=== PATIENT | male | born 1995 | race African-American/Black ===

== ENCOUNTER 2018-07-20 20:47 | Inpatient (IN) | payer SELFPAY ==
[2018-07-20] MEDS ORDERED: NS 0.9% 1000 ML** 3,000 ML IV ONE (21:01)
--- NOTE | 2018-07-20 21:16 | ED ---
HPI Diabetic - HPI Summary HPI Summary: This patient is a 22 year old M presenting to [facility] with a chief complaint of suspected DKA since he has not taken insulin in the past week. Patient is type 1 diabetic. He reports feeling sluggish and nauseous with frequent urination today. He has been unable to get insulin due to issues with his insurance. He states he has been trying to control his BG with his diet as much as possible this past week. 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 - History Of Current Complaint Chief Complaint: EDDiabeticProb Time Seen by Provider: 07/20/18 21:06 Hx Obtained From: Patient Onset/Duration: Gradual Onset, Lasting Days Timing: Constant Severity Initially: Mild Severity Currently: Severe Character: Alert Aggravating: Medication Change Alleviating: Nothing Associated Signs & Symptoms: Weight Loss - increase urination Related History: DM I - Allergies/Home Medications Allergies/Adverse Reactions: Allergies Allergy/AdvReac Type Severity Reaction Status Date / Time No Known Allergies Allergy Verified 07/20/18 21:41 PMH/Surg Hx/FS Hx/Imm Hx Endocrine/Hematology History: Reports: Hx Diabetes - type 1 Respiratory History: Denies: Hx Asthma Infectious Disease History: Yes Infectious Disease History: Denies: Traveled Outside the [place] in Last 30 Days - Family History Known Family History: Negative: Blood Disorder - Social History Occupation: Employed Full-time Hx Substance Use: No Substance Use Type: Reports: None Hx Tobacco Use: No Smoking Status (MU): Never Smoked Tobacco Review of Systems Positive: Fatigue Positive: frequency All Other Systems Reviewed And Are Negative: Yes Physical Exam - Summary Physical Exam Summary: Appearance: Well-appearing, Well-nourished, lying in bed comfortably, generally healthy appearing male Skin: Warm, dry, no obvious rash Eyes: sclera anicteric, no conjunctival pallor ENT: mucous membranes moist, pharynx appears normal Neck: Supple, nontender Respiratory: Clear to auscultation, no signs of respiratory distress, Breathing somewhat kussmal Cardiovascular: Normal S1, S2. No murmurs. Normal distal pulses in tibial and radial bilaterally. Abdomen: Soft, nontender, normal active bowel sounds present Musculoskeletal: Normal, Strength/ROM Intact Neurological: A&Ox3, awake and alert, mentation is normal, speech is fluent and appropriate Psychiatric: affect is normal, does not appear anxious or depressed Triage Information Reviewed: Yes Vital Signs On Initial Exam: Initial Vitals Temp Pulse Resp BP Pulse Ox 98 F 116 30 150/92 100 07/20/18 20:52 07/20/18 20:52 07/20/18 20:52 07/20/18 20:52 07/20/18 20:52 Vital Signs Reviewed: Yes Diagnostics - Vital Signs Vital Signs Temp Pulse Resp BP Pulse Ox 07/20/18 20:52 98 F 116 30 150/92 100 - Laboratory Result Diagrams: 07/21/18 05:05 07/22/18 07:39 Lab Statement: Any lab studies that have been ordered have been reviewed, and results considered in the medical decision making process. Diabetic Course/Dx - Course Course Of Treatment: M presenting to [facility] with a chief complaint of suspected DKA since he has not taken insulin in the past week. Patient is type 1 diabetic. Patients breathing is somewhat kussmal, but he is otherwise alert, oriented and able to answer questions appropiately. Bloodwork obatained revealing BG 343 and carbon dioxide 9. Patient is given 8mg of Zofran and 10 units of insulin. Case discussed with Dr. Holland, hospitalist, who agrees to admission. - Diagnoses Provider Diagnoses: DKA (diabetic ketoacidoses) - Physician Notifications Discussed Care Of Patient With: Helio Holland - hospitalist Time Discussed With Above Provider: 21:54 Instructed by Provider To: Admit As Inpatient - Critical Care Time Critical Care Time: 30-74 min Discharge - Sign-Out/Discharge Documenting (check all that apply): Patient Departure - admit Patient Received Moderate/Deep Sedation with Procedure: No - Discharge Plan Condition: Stable Disposition: ADMITTED TO [facility] - Billing Disposition and Condition Condition: STABLE Disposition: Admitted to [facility] - Attestation Statements Document Initiated by Cadenibe: Yes Documenting Scribe: Anita Salazar Provider For Whom Tre is Documenting (Include Credential): Paco Negreteibwilberto Attestation: Anita Rodriguez, cadenibed for Paco Moncada MD on 07/23/18 at 1116. Scribe Documentation Reviewed: Yes Provider Attestation: The documentation as recorded by the Anita hardy accurately reflects the service I personally performed and the decisions made by me, Paco Moncada MD Status of Scribe Document: Viewed
[2018-07-20 21:26] LABS: ABS Basophils 0.2 10^3/ul (0-0.2); ABS Lymphocytes 2.9 10^3/ul (1.0-4.8); ABS Monocytes 0.6 10^3/ul (0-0.8); ABS Neutrophils 7.3 10^3/ul (1.5-7.7); Eosinophil % 0.1 %; Hematocrit 52 % (42-52); Hemoglobin 17.3 g/dL (14.0-18.0); Lymphocyte % 26.2 %; Mean Corpuscular HGB Conc 34 g/dL (31-36); Mean Corpuscular Hemoglobin 31 pg (27-31); Mean Corpuscular Volume 92 fL (80-94); Mean Platelet Volume 7.6 fL (7.4-10.4); Nucleated Red Blood Cells % 0.1; Platelet Count 319 10^3/uL (150-450); Red Blood Count 5.63 10^6 /uL (4.18-5.48); Red Cell Distribution Width 13 % (10.5-15); White Blood Count 10.9 10^3/uL (3.5-10.8)
[2018-07-20 21:43] LABS: ALT 26 U/L (7-52); Albumin 5.3 g/dL (3.2-5.2); Albumin/Globulin Ratio 1.4 (1-3); Alkaline Phosphatase 105 U/L (34-104); BUN/Creatinine Ratio 14.1 (8-20); Blood Urea Nitrogen 20 mg/dL (6-24); C Reactive Protein < 1.00 mg/L (<8.01); Calcium 10.1 mg/dL (8.6-10.3); Chloride 92 mmol/L (101-111); EGFR African American 74.8 (>60); EGFR Non-African American 61.8 (>60); Globulin 3.8 g/dL (2-4); Glucose 343 mg/dL (70-100); Sodium 129 mmol/L (135-145); Total Protein 9.1 g/dL (6.4-8.9)
[2018-07-20 21:47] LABS: CO2 Carbon Dioxide 9 mmol/L (22-32)
[2018-07-20] MEDS ORDERED: Insulin REGULAR(*) 1 UNITS UNIT IV PUSH ONE (21:48)
[2018-07-20] MEDS ORDERED: Ondansetron INJ* 2 MG/ML VIAL IV ONE (21:58)
[2018-07-20 21:59] LABS: AST 17 U/L (13-39); Anion Gap 28 mmol/L (2-11); Potassium 5.3 mmol/L (3.5-5.0)
[2018-07-20] MEDS ORDERED: Insulin IVPB 100 units/100 ml 100 UNITS/100 ML UNIT IVPB SCH ×2 (22:00→23:00)
[2018-07-20] MEDS ORDERED: NS 0.9% 1000 ML** 1,000 ML IV SCH (22:45)
[2018-07-20 23:07] LABS: Phosphorus 4.1 mg/dL (2.5-5.0)
[2018-07-20] MEDS ORDERED: Ondansetron INJ* 2 MG/ML VIAL IV PRN (23:32)
[2018-07-20] MEDS ORDERED: Acetaminophen TAB* 325 MG PO PRN (23:33)
[2018-07-20 23:53] LABS: Urine Appearance Cloudy; Urine Bacteria Absent (Absent); Urine Bilirubin Negative (Negative); Urine Blood 1+ (Negative); Urine Color Yellow; Urine Glucose 3+(>=500 mg/dL) (Negative); Urine Ketones 2+ (Negative); Urine Nitrite Negative (Negative); Urine Protein 1+(30 mg/dL) (Negative); Urine Red Blood Cell Absent (Absent); Urine Specific Gravity 1.018 (1.010-1.030); Urine Urobilinogen Negative (Negative); Urine White Blood Cell Absent (Absent)
[2018-07-20] MEDS: D5NS 0.9% 1000 ML BAG* 1,000 ML IV SCH (23:54)
[2018-07-21 02:02] LABS: BUN/Creatinine Ratio 14.8 (8-20); Blood Urea Nitrogen 16 mg/dL (6-24); Calcium 8.3 mg/dL (8.6-10.3); Chloride 103 mmol/L (101-111); EGFR African American 102.5 (>60); EGFR Non-African American 84.7 (>60); Glucose 225 mg/dL (70-100); Magnesium 1.8 mg/dL (1.9-2.7); Sodium 133 mmol/L (135-145)
[2018-07-21 02:08] LABS: Anion Gap 21 mmol/L (2-11); CO2 Carbon Dioxide 9 mmol/L (22-32)
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
[2018-07-21] MEDS ORDERED: Magnesium Sulfate 2 GM IV* 2 GM/50 ML BAG IVPB ONE (03:21)
[2018-07-21 05:21] LABS: ABS Basophils 0.1 10^3/ul (0-0.2); ABS Lymphocytes 2.5 10^3/ul (1.0-4.8); ABS Monocytes 0.8 10^3/ul (0-0.8); ABS Neutrophils 5.4 10^3/ul (1.5-7.7); Eosinophil % 0.2 %; Hematocrit 44 % (42-52); Hemoglobin 15.2 g/dL (14.0-18.0); Lymphocyte % 28.8 %; Mean Corpuscular HGB Conc 34 g/dL (31-36); Mean Corpuscular Hemoglobin 30 pg (27-31); Mean Corpuscular Volume 88 fL (80-94); Mean Platelet Volume 7.5 fL (7.4-10.4); Nucleated Red Blood Cells % 0.3; Platelet Count 268 10^3/uL (150-450); Red Blood Count 4.99 10^6 /uL (4.18-5.48); Red Cell Distribution Width 13 % (10.5-15); White Blood Count 8.8 10^3/uL (3.5-10.8)
[2018-07-21 05:41] LABS: BUN/Creatinine Ratio 13.6 (8-20); Calcium 8.5 mg/dL (8.6-10.3); EGFR African American 108.3 (>60); EGFR Non-African American 89.5 (>60); Magnesium 2.7 mg/dL (1.9-2.7); Potassium 3.9 mmol/L (3.5-5.0)
[2018-07-21] MEDS: D5NS 0.9% 1000 ML BAG* 1,000 ML IV SCH (06:57)
[2018-07-21] MEDS: Heparin VIAL(*) 5000 UNITS/ML VIAL (FIVE THOUSAND) SUBCUT SCH ×3 (06:57→20:55)
[2018-07-21] MEDS ORDERED: Dextrose 50% Syringe 50 ML* 25 GM/50 ML SYRINGE IV PUSH PRN (08:08)
[2018-07-21] MEDS: Insulin GLARGINE(*) 1 UNITS UNIT SUBCUT SCH (08:39)
[2018-07-21] MEDS: NS 0.9% 1000 ML** 1,000 ML IV SCH ×2 (08:40→22:48)
[2018-07-21 09:21] LABS: BUN/Creatinine Ratio 11.2 (8-20); Calcium 8.5 mg/dL (8.6-10.3); EGFR African American 103.6 (>60); EGFR Non-African American 85.6 (>60); Magnesium 2.3 mg/dL (1.9-2.7); Potassium 3.9 mmol/L (3.5-5.0)
[2018-07-21] MEDS: Insulin IVPB 100 units/100 ml 100 UNITS/100 ML UNIT IVPB SCH ×2 (11:12)
[2018-07-21] MEDS: Insulin LISPRO* 1 UNITS UNIT SUBCUT SCH ×3 (12:39→20:53)
--- NOTE | 2018-07-21 13:38 | PN ---
Subjective Date of Service: 07/21/18 Interval History: Patient seen and examined. Alert, complaint of cramping legs, no n/v, no fevers or chills, no cough or headache. BG has been stabilizing last 4 hours. Objective Active Medications: Acetaminophen (Tylenol Tab*) 650 mg PO Q6H PRN PRN Reason: HEADACHE/PAIN Dextrose (D50w Syringe 50 Ml*) 12.5 gm IV PUSH .FOR FS < 60 - SS PRN PRN Reason: FS < 60 Heparin Sodium (Porcine) (Heparin Vial(*)) 5,000 units SUBCUT Q8HR [facility] Last Admin: 07/21/18 13:19 Dose: Not Given Sodium Chloride (Ns 0.9% 1000 Ml) 1,000 mls @ 75 mls/hr IV PER RATE [facility] Last Admin: 07/21/18 08:40 Dose: 75 mls/hr Insulin Glargine (Lantus(*)) 30 units SUBCUT Q24H [facility] Last Admin: 07/21/18 08:39 Dose: 24 unit Insulin Human Lispro (Humalog*) 0 units SUBCUT ACHS [facility]; Protocol Last Admin: 07/21/18 12:39 Dose: 6 ml Ondansetron HCl (Zofran Inj*) 4 mg IV Q4H PRN PRN Reason: NAUSEA/VOMITING Last Admin: 07/21/18 00:22 Dose: 4 mg Vital Signs - 8 hr 07/21/18 07/21/18 07/21/18 06:00 07:00 08:00 Temperature 98.5 F Pulse Rate 100 80 78 Respiratory 12 13 15 Rate Blood Pressure 124/73 128/72 123/72 (mmHg) O2 Sat by Pulse 99 99 100 Oximetry 07/21/18 07/21/18 07/21/18 09:00 09:01 12:00 Temperature 98.2 F Pulse Rate 80 77 Respiratory 5 8 Rate Blood Pressure 111/60 (mmHg) O2 Sat by Pulse 97 98 Oximetry Oxygen Devices in Use Now: None Appearance: alert, NAD Eyes: No Scleral Icterus, PERRLA Ears/Nose/Mouth/Throat: NL Teeth, Lips, Gums, Mucous Membranes Moist Neck: NL Appearance and Movements; NL JVP, Trachea Midline Respiratory: Symmetrical Chest Expansion and Respiratory Effort, Clear to Auscultation Cardiovascular: NL Sounds; No Murmurs; No JVD, RRR, No Edema Abdominal: NL Sounds; No Tenderness; No Distention Lymphatic: No Cervical Adenopathy Extremities: No Edema Skin: No Rash or Ulcers, No Nodules or Sclerosis Neurological: Alert and Oriented x 3, NL Gait, NL Muscle Strength and Tone Nutrition: Taking PO's Result Diagrams: 07/21/18 05:05 07/21/18 08:57 Microbiology and Other Data: Microbiology 07/21/18 00:00 Nasal Screen MRSA (PCR) - Final Nasal Mrsa Not Detected Assess/Plan/Problems-Billing Assessment: This is a 22 year old male with history of Type I DM that presented to ED in DKA 2/2 lack of insulin administration over the last 2 weeks. - Patient Problems (1) Type I diabetes mellitus Comment: - since age 15 - Non-adherent to insulin regiment 2/2 lack of insurance resources - Home regimen should be 25-30 units lantus with short acting SS pre-meal (2) Diabetic keto-acidosis Code(s): E11.10 - TYPE 2 DIABETES MELLITUS WITH KETOACIDOSIS WITHOUT COMA SNOMED Code(s): 457077173 Comment: - Anion gap 28 at admission, now 10 after insulin drip at 0.1u/kg/hr, 3 liters NS bolus, IVF at 150ml/hr, magnesium, sodium and potassium repletion - Insulin drip off at 10:30, stop Q1h accuchecks - Blood glucose ACHS, lantus started with lispro SS - continue to monitor lytes (3) Nausea & vomiting Code(s): R11.2 - NAUSEA WITH VOMITING, UNSPECIFIED SNOMED Code(s): 60659222 Comment: - Resolved with IVF, zofran, likely vrial Status and Disposition: Inpatient, dispo DC in AM if glucose remains stable.
[2018-07-21 13:55] LABS: BUN/Creatinine Ratio 13.3 (8-20); Blood Urea Nitrogen 14 mg/dL (6-24); CO2 Carbon Dioxide 19 mmol/L (22-32); Calcium 8.8 mg/dL (8.6-10.3); Chloride 100 mmol/L (101-111); EGFR African American 105.9 (>60); EGFR Non-African American 87.5 (>60); Glucose 254 mg/dL (70-100); Sodium 131 mmol/L (135-145)
[2018-07-21 14:56] LABS: Anion Gap 12 mmol/L (2-11)
[2018-07-22] MEDS: Heparin VIAL(*) 5000 UNITS/ML VIAL (FIVE THOUSAND) SUBCUT SCH ×2 (04:46→12:30)
[2018-07-22] MEDS: Insulin GLARGINE(*) 1 UNITS UNIT SUBCUT SCH (08:30)
[2018-07-22] MEDS: Insulin LISPRO* 1 UNITS UNIT SUBCUT SCH ×3 (08:30→17:53)
[2018-07-22 09:32] LABS: BUN/Creatinine Ratio 12.2 (8-20); EGFR African American 140.9 (>60); EGFR Non-African American 116.4 (>60)
[2018-07-22 13:42] VITALS: BP 121/60
--- NOTE | 2018-07-23 01:41 | DS ---
DISCHARGE SUMMARY: DATE OF ADMISSION: 07/20/18 DATE OF DISCHARGE: 07/22/18 PRIMARY CARE PROVIDER: None. ATTENDING PHYSICIAN: Dr. Joiner.* (DICTATED BY YUNI CARTER) HOSPITAL COURSE: Please refer to admitting H and P on 07/20/18, but in short, Mr. Martin is a 22-year-old male patient with past medical history of diabetes mellitus type 1 diagnosed at age 15. He has been having issues with his [place] Medicaid Insurance for the last 2 years and has been purchasing [id number] insulin in the [facility], where he resides. He was working in [place] for the past 2 weeks when he became acutely ill with nausea and vomiting. He does check his glucose at home and noted that his insulin was running high. When he noted that his sugars were persistently high and he did not have access to insulin, he came to the emergency department for evaluation. Laboratory values indicated the patient was in diabetic ketoacidosis with an anion gap of 28. The patient was admitted to ICU for an insulin drip. His sugars were checked q.1 hour. He was rehydrated with 3 L of normal saline. He was hyponatremic and repleted again with normal saline. Potassium was also corrected, as was his magnesium. He was downgraded from the ICU approximately 24 hours later, placed on Lantus at 30 units and sliding scale a.c. h.s., and placed on consistent carbohydrate diet. The patient's sugars still remain somewhat high, but much more stable than when he was initially admitted. He did report some leg cramping, but on the day of discharge, he denies any fever, fatigue, or chills. No headaches. No chest pain. No shortness of breath. No nausea. No vomiting. He does have some intermittent leg cramping and heaviness, but he states that when he has been in DKA before this is his baseline. He states also that it takes a few days for him to rebound from this, but denies any further constitutional complaints. PHYSICAL EXAMINATION: Today reveals a well-appearing young man of his stated age. His blood pressure is 121/60, heart rate 78, respiratory rate 16, O2 saturation 99% on room air with temperature of 97.7. HEENT: Patient is atraumatic, normocephalic. PERRLA. Nonicteric sclerae. Oral mucosa is moist. Tongue is midline. Neck is supple, nontender. No JVD noted. No carotid bruit auscultated. Cardiovascular: S1, S2 present. Rate and rhythm are regular. No murmurs, gallops, or rubs noted. Lungs are clear bilaterally to auscultations. No wheezing, rhonchi, or rales. Abdomen is soft, nontender, nondistended. Positive bowel sounds in all 4 quadrants. is deferred. Musculoskeletal: There is no clubbing, no cyanosis, no edema. He has +2 distal pulses palpable. Full range of motion. Gross motor and sensation are intact. Neurologic: He is grossly intact with no focal deficits. Psychiatric : He is cooperative and appropriate. DIAGNOSTIC STUDIES/LAB DATA: Laboratories: WBCs 8.8, RBCs 4.99, hemoglobin 15.2, hematocrit 44, platelets 268. Sodium 136, potassium 4.0, chloride 102, CO2 of 23, BUN 10, creatinine 0.82, GFR 140.9, blood glucose is 273. Admission lactic acid was 1.4. Calcium 10.0, phosphorus 4.1, magnesium 2.0. Total bilirubin 0.50, AST 17, ALT 26, alk phos 105, CRP less than 1. Total protein 9.1, albumin of 5.3. Hemoglobin A1c is 12.8. Of significant note, admitting CO2 was 9, anion gap was 28, sodium was 129, potassium was 5.3, and chloride was 92. EKG at admission showed sinus rhythm and no further changes. DISCHARGE DIAGNOSES: 1. Diabetic ketoacidosis. 2. Hyponatremia. 3. Hyperkalemia. 4. Diabetes mellitus type 1, uncontrolled. MEDICATIONS FOR DISCHARGE: 1. Lantus 35 units subcu q.24 hours. 2. Humalog usually takes 8 to 12 units premeal with sliding scale; blood sugar 151 to 200, 2 units; 201 to 250, 3 units; 251 to 300, 4 units; 301 to 350, 5 units; 351 to 400, 6 units; 401 to 450, 8 units. DISPOSITION: The patient was discharged to home in stable condition. FOLLOWUPS: The patient does have a complex issue with insurance at this time. He was initially instructed to follow up with his primary care provider; however , he does not have one. Because the patient has [place] Medicaid, we cannot refer him to a provider here locally in [place]. He cannot come to the [facility] or a local primary care provider. He can go to the [place] [facility], which does have some insulin available for free; however, it is not the insulin he usually takes. They do have Apidra available, but they do not have any long- acting. We will fill Lantus and short-acting insulin from inhouse stock to get him over the next couple of days so he can drive back to [place], where [place] Medicaid will allow him to fill prescriptions, but only from a provider that participates with [place] Medicaid. Social Work is working on trying to locate a provider in that area for a followup appointment for him. I think we are going to refer him perhaps to the [facility] in [place] to see if we can get the patient a followup appointment. Unfortunately, the staff at [place] [employer] has been reluctant to work with us or with the patient directly in order to help us facilitate a safe discharge plan for this patient. We worked very hard to get the patient an insulin supply to keep the patient stable. He does have the people he is working with locally for his job here in [place] for a ride and transport back to [place]. I have discussed this with the patient pretty extensively and he is going to work with his boss on the job site, who is willing to transport him back. So, at this point, we are going to get some insulin available for the patient so he is safe to be discharged and then, hopefully, be able to follow up in his local community for continued diabetic management. DIET: Should be diabetic, carb controlled. ACTIVITY: Progress activity as tolerated. TIME SPENT: Approximately 90 minutes on discharge planning and coordination and coordination with our social security benefits interviewer and case management on discharge planning. CATARINO MARION, NUPUR [id number]/[facility] #: [id number] HARISH
== END 2018-07-22 18:10 | disposition home or self-care (01) | DRG 638 ==
LOC: ED 20:47 → ICU 22:32 → MED 07-21 08:10
PROVIDERS: ADMIT Internal Medicine; ATTEND Internal Medicine
DX: E10.10 Type 1 diabetes mellitus with ketoacidosis without coma (principal); E87.1 Hypo-osmolality and hyponatremia; E86.0 Dehydration; E87.6 Hypokalemia; Z79.4 Long term (current) use of insulin; Z83.3 Family history of diabetes mellitus
CPT/HCPCS: 36415; 80048; 80053; 81003; 81015; 82803; 83036; 83605; 83735; 84100; 85025; 86140; 87641; 93005; 99285; J1644; J1815; J2405; J3475